=== PATIENT | female | born 1960 | race Caucasian/White ===

== ENCOUNTER → 2019-11-28 | Outpatient (REF) | payer BC ==
[2019-11-28 18:07] LABS: APPEARANCE, URINE CLEAR (CLEAR); BACTERIA, URINE AUTO NEGATIVE (NEGATIVE); BILIRUBIN, URINE AUTO NEGATIVE (NEGATIVE); BLOOD, URINE BLOOD NEGATIVE (NEGATIVE); COLOR, URINE YELLOW (YELLOW); GLUCOSE, URINE (UA) AUTO NEGATIVE (NEGATIVE); KETONE, URINE AUTO NEGATIVE (NEGATIVE); LEUKOCYTE ESTERASE, URINE AUTO NEGATIVE (NEGATIVE); NITRITE, URINE AUTO NEGATIVE (NEGATIVE); PROTEIN, URINE AUTO NEGATIVE (NEGATIVE); RBC, URINE AUTO 0 /HPF (0-3); SQUAMOUS EPITHELIAL CELL UR AU 0 /HPF (0-6); UROBILINOGEN, URINE AUTO 0.2 mg/dL (0.0-2.0); WBC, URINE AUTO 0 /HPF (0-3)
== END ==
LOC: M SFHCWAGY 16:42
PROVIDERS: ATTEND Obstetrics & Gynecology
DX: R31.9 Hematuria, unspecified (principal); Z12.4 Encounter for screening for malignant neoplasm of cervix
CPT/HCPCS: 81001; 87624; G0123

== ENCOUNTER → 2019-12-12 | Outpatient (CLI) | payer BC, OTHER ==
[~2019-12-12] MED LIST: COLA100C5 PO; ESTR1TAB PO; IBUP80TA PO; OXYC1TAB23 PO; ZOFR4TAB16 PO
--- NOTE | 2019-12-12 11:55 | REP ---
POSTMENOPAUSAL BLEEDING: COMPARISON: 01/19/2007 which was essentially within normal limits. Transvesical and transvaginal imaging was obtained. The uterus measures 7. 1 x 3.2 x 4.3 cm. Due to the position of the uterus, which is unchanged from the prior exam, the endometrium is difficult to evaluate but has a maximal thickness of approximately 9 mm. In the frontal portion of the uterus, there is an echogenic structure and this extends into the endometrium which measures approximately 1.7 x 1.3 cm, the etiology of which is uncertain. Doppler of this area shows no color flow signal. Left ovary is surgically absent. Right ovary measures 1.6 x 0.9 x 1.4 cm and is within normal limits. IMPRESSION: Markedly limited exam with findings as described above, the etiology of which is uncertain. Pre- and post gadolinium enhanced pelvic MRI is recommended.
== END ==
LOC: M WHC 08:54
PROVIDERS: ATTEND Obstetrics & Gynecology
DX: N95.0 Postmenopausal bleeding (principal)

== ENCOUNTER → 2019-12-19 | Outpatient (CLI) | payer BC ==
--- NOTE | 2019-12-19 08:35 | REPMRS ---
Patient History The patient states she had a clinical breast exam in November 2019. Patient is postmenopausal. Family history of neck cancer at age 80 in mother, skin cancer at age 80 in father, rectal cancer at age 87 in maternal grandmother. Digital Woman Screen Mammo: December 19, 2019 - Exam #: [id number] Bilateral CC and MLO view(s) were taken. Technologist: Emeli Pablo, Technologist Prior study comparison: April 09, 2016, bilateral digital woman screen mammo, performed at [facility]. FINDINGS: There are scattered fibroglandular densities. The Volpara volumetric breast density category is:B. There has been no change in the appearance of the mammogram from the prior studies. There is a mild amount of scattered fibroglandular density which is fairly symmetric. There is no interval development of dominant mass, architectural distortion, or grouped microcalcification suggestive of malignancy. 3-D tomosynthesis shows no additional findings. Assessment: BI-RADS/ACR category 1 mammogram. Negative Mammogram. Recommendation Routine screening mammogram of both breasts in 1 year (for women over age 40). This patient's Lifetime Breast Cancer Risk is estimated at 7.5 %. This mammogram was interpreted with the aid of an FDA-approved computer-aided dectection system. Electronically Signed By: John Gonzalez MD 12/19/19 0829
== END ==
LOC: M WHC 07:13
PROVIDERS: ATTEND Obstetrics & Gynecology
DX: Z12.31 Encounter for screening mammogram for malignant neoplasm of breast (principal); Z78.0 Asymptomatic menopausal state; Z80.8 Family history of malignant neoplasm of other organs or systems

== ENCOUNTER → 2020-01-11 | Outpatient (CLI) | payer BC ==
--- NOTE | 2020-02-16 13:45 | ECGEPIP ---
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
== END ==
LOC: M EKG 09:08
PROVIDERS: ATTEND Anesthesiology
DX: Z01.818 Encounter for other preprocedural examination (principal)

== ENCOUNTER 2020-01-12 14:00 | Day surgery (SDC) | payer BC ==
[2020-01-12] MEDS ORDERED: propofoL 200 MG/20 ML VIAL ONE (19:56)
[2020-01-12] MEDS ORDERED: dexameTHASONE 4 MG/ML 1ML VIAL (J1100 PER 1MG) ONE ×2 (19:57)
[2020-01-12] MEDS ORDERED: MIDAZOLAM INJ 2MG/2ML VIAL (J2250 PER 1MG) ONE (19:57)
[2020-01-12] MEDS ORDERED: ONDANSETRON 4MG/2ML VIAL ONE (19:57)
[2020-01-12] MEDS ORDERED: LIDOCAINE 2% 100MG/5ML SDV (FOR ANES.) ONE (19:57)
[2020-01-12] MEDS ORDERED: fentaNYL 100 MCG/2 ML INJECTION (J3010) ONE (19:57)
[2020-01-12] MEDS ORDERED: KETOROLAC 60MG 2ML VIAL ONE (20:06)
[2020-01-12] MEDS ORDERED: ACETAMINOPHEN 1000MG 100ML IV BTL (OFIRMEV) (J0131 PER 10MG) ONE (21:16)
[2020-02-19] MEDS ORDERED: ESTR1TAB PO (11:48)
--- NOTE | 2020-03-07 13:45 | RO ---
DATE OF OPERATION: 01/12/2020 PREOPERATIVE DIAGNOSES: * Postmenopausal bleeding * Endometrial mass. POSTOPERATIVE DIAGNOSES: * Postmenopausal bleeding. * Endometrial mass. PROCEDURES PERFORMED: * Hysteroscopy and dilation and curettage (D&C). * MyoSure morcellation of endometrial mass. SURGEON: Beny Malik DO BOARD CATCHER: None. ANESTHESIA: General via laryngeal mask airway (LMA). SPECIMENS SENT TO PATHOLOGY: * Endometrial mass, morcellated. * Endometrial curettings. ESTIMATED BLOOD LOSS: 10 mL. FLUIDS REPLACED: 800 mL of lactated ringers. FLUID DEFICIT: 500 mL normal saline (hysteroscopic fluid deficit). DRAINS: In and out catheter 250 mL urine output. COMPLICATIONS: None. PREOPERATIVE ANTIBIOTICS: None indicated. INTRAOPERATIVE FINDINGS: Endometrial mass approximately 1-2 cm in greatest dimension located on the right fundal portion of the endometrial cavity. DESCRIPTION OF PROCEDURE: The patient was counseled and consented on the risks, benefits, indications, and alternatives of the procedure. Informed consent was obtained. She was taken to the operating room with an IV running and placed on the operating room table in the dorsal supine position. General anesthesia was administered and the airway secured without any difficulty. She was then placed in the high lithotomy position. She was prepared and draped in the normal sterile fashion. Time-out was performed per protocol. The bladder was drained with a sterile in and out catheter. A sterile speculum was placed with good visualization of the cervix. The anterior lip of the cervix was grasped with a single-tooth tenaculum and downward traction was applied. The cervix was then sequentially dilated to a Paramjit dilator #20, and the uterus was sounded to 8 cm. The hysteroscope was placed transcervically into the intrauterine cavity with the findings noted above. Given the endometrial mass the MyoSure light was then placed transcervically into the intrauterine cavity through the hysteroscope port and the endometrial mass was morcellated until all of it was gone. The MyoSure device was removed, a sharp curette was placed transcervically into the intrauterine cavity, and a sharp curettage was performed throughout the cavity until gritty texture was noted throughout and minimal tissue was noted. The sharp curette was removed. Minimal bleeding from the cervical os was noted. Single-tooth tenaculum was removed and the tenaculum sites were noted to be hemostatic. Sponge, needle, and instrument counts were correct per protocol. The patient tolerated the entire procedure well. All instruments were removed from the vagina. She was transferred to the PACU in good stable condition. PASCUAL
[2020-03-09 19:09] LABS: HEMATOCRIT 44.2 % (36.0-47.0); HEMOGLOBIN 14.4 g/dl (12.0-15.5); MEAN CORPUSCULAR HEMOGLOBIN 32.9 pg (27.0-33.0); MEAN CORPUSCULAR HGB CONC 32.6 g/dl (32.0-36.5); MEAN CORPUSCULAR VOLUME 100.9 fl (80.0-96.0); PLATELET COUNT, AUTOMATED 281 10^3/uL (150-450); RED BLOOD COUNT 4.38 10^6/uL (4.00-5.40); WHITE BLOOD COUNT 11.4 10^3/uL (4.0-10.0)
== END 2020-01-12 22:55 | disposition home or self-care (01) ==
LOC: M SDC 14:00
PROVIDERS: ATTEND Obstetrics & Gynecology
DX: N85.02 Endometrial intraepithelial neoplasia [EIN] (principal); N95.0 Postmenopausal bleeding; M06.9 Rheumatoid arthritis, unspecified; F32.9 Major depressive disorder, single episode, unspecified; F17.210 Nicotine dependence, cigarettes, uncomplicated; Z88.1 Allergy status to other antibiotic agents; Z91.040 Latex allergy status; Z91.018 Allergy to other foods; Z88.2 Allergy status to sulfonamides; Z79.818 Long term (current) use of other agents affecting estrogen receptors and estrogen levels
CPT/HCPCS: 58558; 85027; 86850; 86900; 86901; 88305; J0131; J1100; J1885; J2250; J2405; J3010

== ENCOUNTER → 2020-02-16 | Outpatient (CLI) | payer BC, OTHER ==
[2020-02-16 15:20] LABS: BASO # 0.1 10^3/uL (0.0-0.2); BASO % 0.8 % (0.0-1.0); EOS # 0.2 10^3/uL (0.0-0.5); EOS % 1.8 % (0.0-3.0); HEMATOCRIT 43.4 % (36.0-47.0); HEMOGLOBIN 14.4 g/dl (12.0-15.5); LYMPH # 3.3 10^3/uL (1.5-5.0); LYMPH % 27.8 % (24.0-44.0); MEAN CORPUSCULAR HEMOGLOBIN 33.4 pg (27.0-33.0); MEAN CORPUSCULAR HGB CONC 33.2 g/dl (32.0-36.5); MEAN CORPUSCULAR VOLUME 100.7 fl (80.0-96.0); MONO % 8.4 % (0.0-5.0); NEUTROPHILS # 7.2 10^3/uL (1.5-8.5); NEUTROPHILS % 60.9 % (36.0-66.0); PLATELET COUNT, AUTOMATED 279 10^3/uL (150-450); RED BLOOD COUNT 4.31 10^6/uL (4.00-5.40); WHITE BLOOD COUNT 11.9 10^3/uL (4.0-10.0)
[2020-02-16 15:58] LABS: ALBUMIN 3.9 GM/DL (3.2-5.2); ALT/SGPT 46 U/L (12-78); BILIRUBIN,TOTAL 0.4 MG/DL (0.2-1.0); BLOOD UREA NITROGEN 13 MG/DL (7-18); CALCIUM LEVEL 9.2 MG/DL (8.8-10.2); CARBON DIOXIDE LEVEL 28 MEQ/L (21-32); CHLORIDE LEVEL 103 MEQ/L (98-107); CHOLESTEROL LEVEL 233 MG/DL (<200); CREATININE FOR GFR 0.84 MG/DL (0.55-1.30); FREE T4 0.94 NG/DL (0.76-1.46); GLOMERULAR FILTRATION RATE > 60.0 (>45); GLUCOSE, FASTING 103 MG/DL (70-100); HDL CHOLESTEROL 56 MG/DL (>40); LDL CHOLESTEROL 151 MG/DL (<100); NON-HDL-C 177 MG/DL; POTASSIUM SERUM 4.2 MEQ/L (3.5-5.1); SODIUM LEVEL 139 MEQ/L (136-145); TOTAL PROTEIN 7.6 GM/DL (6.4-8.2); TRIGLYCERIDES LEVEL 129 MG/DL (<150)
== END ==
LOC: M PLALAB 14:03
PROVIDERS: ATTEND Physician Assistant
DX: Z00.00 Encounter for general adult medical examination without abnormal findings (principal); Z13.29 Encounter for screening for other suspected endocrine disorder; Z13.220 Encounter for screening for lipoid disorders; F17.210 Nicotine dependence, cigarettes, uncomplicated

== ENCOUNTER → 2020-02-21 | Outpatient (CLI) | payer BC | LOC: M LABSMTC 10:57 | PROVIDERS: ATTEND Anesthesiology | DX: Z01.812 Encounter for preprocedural laboratory examination (principal); Z20.828 Contact with and (suspected) exposure to other viral communicable diseases | CPT/HCPCS: C9803; U0003 ==

== ENCOUNTER 2020-02-26 06:05 | Day surgery (SDC) | payer BC ==
[~2020-02-26] VITALS: Ht 157.5 cm; Wt 95.7 kg
[~2020-02-26 06:05] MED LIST changes: -COLA100C5 PO; -IBUP80TA PO; -OXYC1TAB23 PO; -ZOFR4TAB16 PO
[2020-02-26 06:44] LABS: HEMATOCRIT 42.6 % (36.0-47.0); MEAN CORPUSCULAR HEMOGLOBIN 33.3 pg (27.0-33.0); MEAN CORPUSCULAR HGB CONC 32.9 g/dl (32.0-36.5); MEAN CORPUSCULAR VOLUME 101.2 fl (80.0-96.0); PLATELET COUNT, AUTOMATED 276 10^3/uL (150-450); RED BLOOD COUNT 4.21 10^6/uL (4.00-5.40); WHITE BLOOD COUNT 8.4 10^3/uL (4.0-10.0)
[2020-02-26] MEDS ORDERED: ceFAZolin SOD 2 GM in IV 1 EA IV ONE (07:00)
[2020-02-26] MEDS ORDERED: LR 1,000 ML IV ONE (07:00)
[2020-02-26] MEDS ORDERED: BUPIVACAINE HCL 0.25% 30ML VIAL As Ordered ONE (07:12)
[2020-02-26] MEDS ORDERED: METHYLENE BLUE 0.5% (5MG/ML) 10 ML AMP (PROVAYBLUE) As Ordered ONE (07:12)
[2020-02-26] MEDS ORDERED: METOCLOPRAMIDE INJ 10MG/2ML VIAL (J2765 PER 1) As Ordered ONE (07:13)
[2020-02-26] MEDS ORDERED: LIDOCAINE 2% 100MG/5ML SDV (FOR ANES.) As Ordered ONE (07:13)
[2020-02-26] MEDS ORDERED: propofoL 200 MG/20 ML VIAL As Ordered ONE (07:13)
[2020-02-26] MEDS ORDERED: ONDANSETRON 4MG/2ML VIAL As Ordered ONE (07:13)
[2020-02-26] MEDS ORDERED: ROCURONIUM BROMIDE 50 MG/5 ML VIAL As Ordered ONE (07:13)
[2020-02-26] MEDS ORDERED: MIDAZOLAM INJ 2MG/2ML VIAL (J2250 PER 1MG) As Ordered ONE (07:14)
[2020-02-26] MEDS ORDERED: fentaNYL 100 MCG/2 ML INJECTION (J3010) As Ordered ONE (07:15)
[2020-02-26] MEDS ORDERED: LABETALOL 100MG/20ML VIAL As Ordered ONE (08:21)
[2020-02-26] MEDS ORDERED: hydrALAZINE 20MG/ML 1ML VIAL (J0360 PER 20MG) As Ordered ONE (08:21)
[2020-02-26] MEDS ORDERED: HYDROmorphone HCL 2 MG/ML 1ML VIAL (J1170) As Ordered ONE (08:24)
[2020-02-26] MEDS ORDERED: SUGAMMADEX SODIUM 500 MG/5 ML VIAL (BRIDION) As Ordered ONE (09:16)
[2020-02-26] MEDS ORDERED: dexameTHASONE 4 MG/ML 1ML VIAL (J1100 PER 1MG) As Ordered ONE (09:20)
[2020-02-26] MEDS ORDERED: KETOROLAC 60MG 2ML VIAL As Ordered ONE (09:20)
[2020-02-26] MEDS ORDERED: LR 1,000 ML IV SCH ×2 (10:15)
[2020-02-26] MEDS ORDERED: fentaNYL 100 MCG/2 ML INJECTION (J3010) IV PRN (10:15)
[2020-02-26] MEDS ORDERED: METOCLOPRAMIDE INJ 10MG/2ML VIAL (J2765 PER 1) IV PRN (10:15)
[2020-02-26] MEDS ORDERED: PROMETHAZINE INJ 25 MG/ML VIAL (J2550) IV PRN (10:15)
[2020-02-26] MEDS ORDERED: PERCOCET 5MG/325MG TAB PO PRN ×3 (10:15)
[2020-02-26] MEDS ORDERED: MORPHINE 4 MG/ML 1ML VIAL/SYRINGE (J2270) IV PRN (10:15)
[2020-02-26] MEDS ORDERED: ONDANSETRON 4MG/2ML VIAL IV PRN ×2 (10:15)
--- NOTE | 2020-02-26 10:20 | ROOPDOC ---
[facility] Report Of Operation Report of Operation DATE OF PROCEDURE: 02/26/2020 PREPROCEDURE DIAGNOSES: Postmenopausal bleeding, complex atypical endometrial hyperplasia POSTPROCEDURE DIAGNOSES: Same. PROCEDURE: Robotic-assisted total laparoscopic hysterectomy, bilateral salpingo- oophorectomy, lysis of adhesions, cystoscopy SURGEON: Beny Malik D.O. FACOG THREADING MACHINE TENDER: Breanna Oliveira (essential role during all steps of the case, particularly with uterine manipulation) ANESTHESIA: General endotracheal. ESTIMATED BLOOD LOSS: Approximately 200 mL. FLUIDS REPLACED: 1000 mL LR URINE OUTPUT: 50 mL COMPLICATIONS: None. FINDINGS: Normal-appearing ovaries bilaterally. Uterus was approximately 8 centimeters in greatest dimension. Very dense bladder adhesions to the cervix and anterior uterine body/lower uterine segment . Cystoscopy: Bilateral ureteral orifice efflux, no bladder injury/suture material. PREOPERATIVE ANTIBIOTIC PROPHYLAXIS: Ancef 2 g IV 1. SPECIMEN(S): Uterus w/ cervix, bilateral fallopian tubes and ovaries DESCRIPTION OF PROCEDURE: The patient was counseled, consented on the respective benefits, indications, alternatives of procedure. Informed consent was obtained. She was taken to the operating room with an IV running. She was placed on the operating table in dorsal supine position. Gen. anesthesia was administered and the airway was secured without any difficulty. She was placed in the low lithotomy position. . She was prepared and draped in the normal sterile fashion. A time out was performed per protocol. A Ahuja catheter was placed under sterile conditions. A sterile speculum was placed resulting in good visualization of the cervix. A single-tooth tenaculum was used to grasp the anterior lip cervix. The cervix was sequentially dilated with Paramjit dilators. A V-Care uterine manipulator was placed without any difficulty. The single-tooth tenaculum was removed, as well as the speculum. A sterile glove switch was performed. Attention was turned to the abdomen. An 8mm incision was made in the umbilicus, and through this incision a Veress needle was inserted into the intraperitoneal cavity. Intraperitoneal placement was confirmed with ease of flow of normal saline, positive drop test, no return on aspiration, and an opening pressure of less than 10 mmHg upon initial insufflation. The abdomen was insufflated with 2 L of gas. The Veress needle was removed. Through this incision, the robotic trocar/cannula was inserted into the intraperitoneal cavity under direct visualization. No incidental bleeding nor injury was noted. Patient was placed in 30 Trendelenburg. The right and left trocars/cannulas were placed on both the right and left side through 8 mm incisions, guided by laparoscopic visualization. No incidental bleeding nor injury was noted. The robot was docked in typical fashion. The instruments were inserted, guided by laparoscopic visualization. My attention was turned to the robotic console. The right utero-ovarian ligament and right round ligament were sequentially clamped, coagulated and transected with the vessel sealer device. The right uterine vasculature was sequentially clamped, coagulated and transected above and medial to the rim of the colpotomy cup. The vesicovaginal space /vesicouterine peritoneum was dissected with the vessel sealer device to create the bladder flap. An extensive amount of adhesiolysis had to be performed during this process to mobilize the bladder off the cervix and uterus. The left utero-ovarian ligament and left round ligament were sequentially clamped, coagulated and transected with the vessel sealer device. The remainder of the bladder flap was dissected using the vessel sealer device and blunt dissection.. Again, an extensive amount of adhesiolysis was performed. The left uterine vasculature was sequentially clamped, coagulated and transected above and medial to the rim of the colpotomy cup. The outline of the entire V- care colpotomy cup was able to be delineated. Excellent blanching of the uterus was noted. A circumferential colpotomy was performed using the da Josiane monopolar erica, following the contour of the cup. The amputated cervix and uterus were brought through the colpotomy into and out of the vagina, intact as one unit. The right IP ligament was identified and elevated. The right ureter was identified and noted to be well away from the planned surgical pedicle. The right IP ligament was sequentially clamped, coagulated and transected with the vessel sealer device. The amputated right ovary and fallopian tube were put into the vagina through the colpotomy. In similar fashion, the left IP ligament was identified and elevated. The left ureter was identified and noted to be well away from the planned surgical pedicle. The left IP ligament was sequentially clamped, coagulated and transected with the vessel sealer device. Amputated left ovary and fallopian tube were put into the vagina through the colpotomy. All specimens were removed from the vagina and sent to pathology for permanent s ection. A laparotomy sponge was placed in a sterile glove and then placed into the vagina to maintain pneumoperitoneum. The colpotomy was closed with the V-lock suture in running fashion, thus creating the vaginal cuff. Excellent hemostasis was noted throughout the steps above. David was placed over the vaginal cuff to ensure hemostasis. The instruments were removed from the abdomen and the robot was un-docked. The gas was released from the abdomen and the patient was taken out of Trendelenburg. I re-scrubbed, and attention was turned to the pelvis. The glove with laparotomy sponge was removed from the vagina. The Ahuja catheter was removed. The cystoscope was placed transurethrally into the bladder and normal saline was instilled. No bladder injury/suture material nor ureteral injury was detected. The fluid was drained out of the bladder through the cystoscope device, then the cystoscope was removed. The vagina was copiously irrigated. A sterile digital vaginal exam revealed no significant bleeding and an intact vaginal cuff. A sterile glove switch was performed. The da Josiane cannulas were removed. The skin incisions were closed with 4-0 Monocryl in subcuticular fashion. Sponge, needle and instrument counts were correct per protocol. The patient tolerated the entire procedure very well. She was transferred to the PACU in good and stable condition. DO STEPHANIE Earl JONATHAN R. DO Feb 26, 2020 10:20
[2020-02-26 10:32] VITALS: BP 115/67
[2020-02-26 11:00] VITALS: BP 110/60
[2020-02-26 11:30] VITALS: BP 107/54
[2020-02-26 12:30] VITALS: BP 110/55
[2020-02-26 13:30] VITALS: BP 109/57
[2020-02-26] MEDS ORDERED: OXYC1TAB23 PO (13:46)
[2020-02-26] MEDS ORDERED: IBUP80TA PO (13:48)
[2020-02-26] MEDS ORDERED: COLA100C5 PO (13:49)
[2020-02-26] MEDS ORDERED: ZOFR4TAB16 PO (13:49)
== END 2020-02-26 15:04 | disposition home or self-care (01) ==
LOC: M SDC 06:05 → M MSPAV 10:32 → M SDC 15:04
PROVIDERS: ATTEND Obstetrics & Gynecology
DX: C54.1 Malignant neoplasm of endometrium (principal); N72 Inflammatory disease of cervix uteri; F17.218 Nicotine dependence, cigarettes, with other nicotine-induced disorders; Z79.899 Other long term (current) drug therapy; Z88.2 Allergy status to sulfonamides; Z91.040 Latex allergy status
CPT/HCPCS: 36415; 58571; 85027; 86850; 86900; 86901; 88307; J0360; J0690; J1100; J1170; J1885; J2250; J2405; J2765; J3010; Q9968

== ENCOUNTER → 2020-03-13 | Outpatient (CLI) | payer BC ==
[~2020-03-13] MED LIST changes: +COLA100C5 PO; +GASTROGRAFIN SOLUTION 30ML (Q9963) As Ordered ONE; +IBUP80TA PO; +ISOVUE-370 76% 100ML VIAL As Ordered ONE; +OXYC1TAB23 PO; +ZOFR4TAB16 PO
--- NOTE | 2020-03-14 06:59 | REP ---
INDICATION: ENDOMETRIAL CA COMPARISON: None. TECHNIQUE: Axial contrast enhanced images from the thoracic inlet to the upper abdomen using 100 ml Isovue 370 intravenous contrast material with multiplanar re-formations followed by CT of the abdomen and pelvis. FINDINGS: The bilateral lung whitney are well aerated and essentially clear. Minimal linear plate like scarring in the left mid lung zone is appreciated. No consolidation, suspicious nodule or mass lesion. No pleural effusion. No pneumothorax. Tracheobronchial tree is patent. No significant adenopathy. Mediastinum demonstrates relatively normal thoracic aorta, pulmonary vasculature, and heart/pericardium. Surrounding musculoskeletal structures are intact and without acute osseous abnormality. IMPRESSION: 1. No acute mediastinal or pleuroparenchymal process appreciated. 2. Specifically, no evidence for metastatic disease. <Electronically signed by Vernon Mars > 03/14/20 [id number]
--- NOTE | 2020-03-14 07:05 | REP ---
INDICATION: ENDOMETRIAL CA COMPARISON: None. TECHNIQUE: Axial contrast enhanced images from the lung bases to the pubic symphysis using 100 cc Isovue 370 intravenous contrast material with coronal and sagittal reformations followed by delayed images of the abdomen. FINDINGS: Fatty infiltration to the liver noted without focal hepatic lesion. Spleen, pancreas, gallbladder, bilateral adrenal glands and kidneys are normal. The enteric system is without obstruction or acute inflammatory process. Scattered sigmoid diverticula noted without acute diverticulitis. Pelvis demonstrates normal bladder and evidence for prior hysterectomy. No pelvic fluid. No obvious focal pelvic recurrence or evidence for metastatic disease. No ascites. No intraperitoneal or retroperitoneal adenopathy. Atherosclerotic changes to the aorta noted without aneurysm or dissection musculoskeletal structures are intact and without acute osseous abnormality IMPRESSION: 1. Evidence of prior total hysterectomy. 2. Hepatosteatosis. 3. No acute abdominopelvic pathology appreciated. Specifically, no evidence for recurrence or metastatic disease. <Electronically signed by Vernon Mars > 03/14/20 0701
== END ==
LOC: M RAD 14:42
PROVIDERS: ATTEND Obstetrics & Gynecology
DX: C54.1 Malignant neoplasm of endometrium (principal); Z90.79 Acquired absence of other genital organ(s); K76.0 Fatty (change of) liver, not elsewhere classified
CPT/HCPCS: 71260; 74177; Q9963; Q9967

== ENCOUNTER → 2020-04-19 | Outpatient (CLI) | payer BC ==
[~2020-04-19] MED LIST changes: -GASTROGRAFIN SOLUTION 30ML (Q9963) As Ordered ONE; -ISOVUE-370 76% 100ML VIAL As Ordered ONE
== END ==
LOC: M LABSMTC 09:46
PROVIDERS: ATTEND Anesthesiology
DX: Z01.812 Encounter for preprocedural laboratory examination (principal); Z20.828 Contact with and (suspected) exposure to other viral communicable diseases

== ENCOUNTER 2020-04-24 07:40 | Day surgery (SDC) | payer BC ==
[~2020-04-24] VITALS: Ht 157.5 cm; Wt 95.2 kg
[~2020-04-24 07:40] MED LIST changes: +NS 1,000 ML IV ONE
[2020-04-24] MEDS ORDERED: propofoL 200 MG/20 ML VIAL As Ordered ONE ×2 (07:41→09:03)
[2020-04-24] MEDS ORDERED: LIDOCAINE 2% 100MG/5ML SDV (FOR ANES.) As Ordered ONE (07:41)
[2020-04-24] MEDS ORDERED: LABETALOL 100MG/20ML VIAL As Ordered ONE (08:57)
--- NOTE | 2020-04-24 09:21 | ROOR ---
Patient Name: Radha Melo Procedure Date: 04/24/2020 8:41 AM Date of : 1960 Age: 59 Room: [facility] Gender: Female Note Status: Finalized Procedure: Colonoscopy Indications: Screening for colorectal malignant neoplasm Providers: DO Ashley Ramirez MD: Shante Coronado Requesting Provider: Medicines: Propofol per Anesthesia Complications: No immediate complications. Procedure: Pre-Anesthesia Assessment: - Prior to the procedure, a History and Physical was performed, and patient medications and allergies were reviewed. The patient is competent. The risks and benefits of the procedure and the sedation options and risks were discussed with the patient. All questions were answered and informed consent was obtained. Patient identification and proposed procedure were verified by the physician, the nurse, the trailer mechanic and the poured concrete wall technician in the endoscopy suite. Mental Status Examination: alert and oriented. Airway Examination: normal oropharyngeal airway and neck mobility. Respiratory Examination: clear to auscultation. CV Examination: normal. Prophylactic Antibiotics: The patient does not require prophylactic antibiotics. Prior Anticoagulants: The patient has taken no previous anticoagulant or antiplatelet agents. ASA Grade Assessment: II - A patient with mild systemic disease. After reviewing the risks and benefits, the patient was deemed in satisfactory condition to undergo the procedure. The anesthesia plan was to use monitored anesthesia care (MAC). Immediately prior to administration of medications, the patient was re-assessed for adequacy to receive sedatives. The heart rate, respiratory rate, oxygen saturations, blood pressure, adequacy of pulmonary ventilation, and response to care were monitored throughout the procedure. The physical status of the patient was re-assessed after the procedure. The Colonoscope was introduced through the anus and advanced to the cecum, identified by appendiceal orifice and ileocecal valve. The colonoscopy was performed without difficulty. The patient tolerated the procedure well. Findings: Non-bleeding internal hemorrhoids were found during retroflexion. The hemorrhoids were Grade II (internal hemorrhoids that prolapse but reduce spontaneously). A less than 5 mm polyp was found in the sigmoid colon. The polyp was hyperplastic. The polyp was removed with a jumbo cold forceps. Resection and retrieval were complete. The exam was otherwise without abnormality. Impression: - Non-bleeding internal hemorrhoids. - One less than 5 mm polyp in the sigmoid colon, removed with a jumbo cold forceps. Resected and retrieved. - The examination was otherwise normal. Recommendation: - Patient has a contact number available for emergencies. The signs and symptoms of potential delayed complications were discussed with the patient. Return to normal activities tomorrow. Written discharge instructions were provided to the patient. - Await pathology results. - Repeat colonoscopy in 3 - 5 years for surveillance based on pathology results. - Return to my office at appointment to be scheduled. Procedure Code(s): --- Professional --- 49173, Colonoscopy, flexible; with biopsy, single or multiple Diagnosis Code(s): --- Professional --- Z12.11, Encounter for screening for malignant neoplasm of colon K64.1, Second degree hemorrhoids K63.5, Polyp of colon CPT copyright 2019 [employer]. All rights reserved. The codes documented in this report are preliminary and upon first officer review may be revised to meet current compliance requirements. Mo Ayala DO 04/24/2020 9:21:02 AM Electronically signed by Mo Ayala DO Number of Addenda: 0 Note Initiated On: 04/24/2020 8:41 AM Estimated Blood Loss: Estimated blood loss was minimal.
[2020-04-24 09:50] VITALS: BP 172/84
== END 2020-04-24 10:08 | disposition home or self-care (01) ==
LOC: M OPP 07:40
PROVIDERS: ATTEND Surgery
DX: Z12.11 Encounter for screening for malignant neoplasm of colon (principal); K63.5 Polyp of colon; K64.1 Second degree hemorrhoids; F17.210 Nicotine dependence, cigarettes, uncomplicated; Z88.2 Allergy status to sulfonamides; Z88.8 Allergy status to other drugs, medicaments and biological substances; Z91.040 Latex allergy status; Z91.048 Other nonmedicinal substance allergy status

== ENCOUNTER → 2020-09-20 | Outpatient (REF) | payer BC ==
[~2020-09-20] MED LIST changes: -NS 1,000 ML IV ONE
[2020-09-20 14:37] LABS: CHOLESTEROL RISK RATIO 4.109 (<5)
== END ==
LOC: M SFHCPLAZ 13:28
PROVIDERS: ATTEND Physician Assistant
DX: E78.2 Mixed hyperlipidemia (principal)

== ENCOUNTER → 2021-01-21 | Outpatient (CLI) | payer BC ==
--- NOTE | 2021-01-21 12:08 | REPMRS ---
Patient History The patient states she had a clinical breast exam in 12/2020. Patient is postmenopausal and has history of endometrial cancer at age 59. Family history of colorectal cancer at age 87 in maternal grandmother. No Hormone Replacement Therapy Patient states no breast complaints today. Patient has signed MRS History Sheet. Digital Woman Screen Mammo: January 21, 2021 - Exam #: [id number] Bilateral CC and MLO view(s) were taken. Technologist: Mariama Vigil, Technologist Prior study comparison: December 19, 2019, bilateral digital woman screen mammo performed at [facility]. April 09, 2016, bilateral digital woman screen mammo, performed at [facility]. FINDINGS: There are scattered fibroglandular densities. The Volpara volumetric breast density category is:B. There has been no change in the appearance of the mammogram from the prior studies. There is a mild amount of scattered fibroglandular density which is fairly symmetric. There is no interval development of dominant mass, architectural distortion, or grouped microcalcification suggestive of malignancy. 3-D tomosynthesis shows no additional findings. Assessment: BI-RADS/ACR category 1 mammogram. Negative Mammogram. Recommendation Routine screening mammogram of both breasts in 1 year (for women over age 40). This patient's [facility] Lifetime Breast Cancer Risk is estimated at 7.3 %. This mammogram was interpreted with the aid of an FDA-approved computer-aided dectection system. Electronically Signed By: John Gonzalez MD 01/21/21 7641
== END ==
LOC: M WHC 08:45
PROVIDERS: ATTEND Obstetrics & Gynecology
DX: Z12.31 Encounter for screening mammogram for malignant neoplasm of breast (principal); Z78.0 Asymptomatic menopausal state; Z85.42 Personal history of malignant neoplasm of other parts of uterus

== ENCOUNTER → 2021-01-21 | Outpatient (CLI) | payer BC ==
--- NOTE | 2021-01-21 11:14 | REP ---
INDICATION: OTHER CHEST PAIN COMPARISON: 05/18/2015 TECHNIQUE: PA and lateral. FINDINGS: The mediastinum and cardiac silhouette are normal. The lung whitney are clear and without acute consolidation, effusion, or pneumothorax. The skeletal structures are intact and normal. IMPRESSION: No acute cardiopulmonary process. <Electronically signed by Vernon Mars > 01/21/21 [id number]
== END ==
LOC: M PLAIMG 10:06 → M PLALAB 10:06
PROVIDERS: ATTEND Obstetrics & Gynecology
DX: Z12.72 Encounter for screening for malignant neoplasm of vagina (principal); Z01.419 Encounter for gynecological examination (general) (routine) without abnormal findings; R07.89 Other chest pain
CPT/HCPCS: 71046; 87624; G0123

== ENCOUNTER → 2022-03-27 | Outpatient (CLI) | payer BC | LOC: M WHC 11:12 | PROVIDERS: ATTEND Obstetrics & Gynecology | DX: Z12.31 Encounter for screening mammogram for malignant neoplasm of breast (principal) ==

== ENCOUNTER → 2022-03-27 | Outpatient (CLI) | payer BC | LOC: M WHC 12:41 | PROVIDERS: ATTEND Obstetrics & Gynecology | DX: Z85.42 Personal history of malignant neoplasm of other parts of uterus (principal) ==

== ENCOUNTER → 2022-03-27 | Outpatient (REF) | payer BC | LOC: M SFHCWAGY 17:10 | PROVIDERS: ATTEND Obstetrics & Gynecology | DX: Z85.42 Personal history of malignant neoplasm of other parts of uterus (principal); Z12.4 Encounter for screening for malignant neoplasm of cervix; Z01.419 Encounter for gynecological examination (general) (routine) without abnormal findings; Z77.9 Other contact with and (suspected) exposures hazardous to health | CPT/HCPCS: 87624; G0123 ==

== ENCOUNTER → 2022-06-18 | Outpatient (CLI) | payer BC ==
[2022-06-18 11:55] LABS: ALBUMIN 3.9 G/DL (3.2-5.2); ALKALINE PHOSPHATASE 105 U/L (46-116); ALT/SGPT 23 U/L (7.0-40); AST/SGOT 24 U/L (<34); BILIRUBIN,TOTAL 0.4 MG/DL (0.3-1.2); BLOOD UREA NITROGEN 12 MG/DL (9-23); CALCIUM LEVEL 9.1 MG/DL (8.3-10.6); CARBON DIOXIDE LEVEL 29 MMOL/L (20-31); CHLORIDE LEVEL 105 MMOL/L (98-107); CHOLESTEROL LEVEL 218 MG/DL (<200); CHOLESTEROL RISK RATIO 3.85 (<5); CREATININE FOR GFR 0.73 MG/DL (0.55-1.30); GLOMERULAR FILTRATION RATE > 60.0 (>45); GLUCOSE, FASTING 111 MG/DL (74-106); HDL CHOLESTEROL 56.5 MG/DL (>40); LDL CHOLESTEROL 134.9 MG/DL (<100); NON-HDL-C 162 MG/DL; POTASSIUM SERUM 4.2 MMOL/L (3.5-5.1); SODIUM LEVEL 139 MMOL/L (136-145); TOTAL PROTEIN 7.6 G/DL (5.7-8.2); TRIGLYCERIDES LEVEL 133 MG/DL (<150)
== END ==
LOC: M PLALAB 09:04
PROVIDERS: ATTEND Nurse Practitioner Family
DX: E78.2 Mixed hyperlipidemia (principal)

== ENCOUNTER → 2022-08-28 | Outpatient (REF) | payer BC ==
[2022-08-28 17:01] LABS: BASO # 0.1 10^3/uL (0.0-0.2); BASO % 0.9 % (0.0-1.0); EOS # 0.2 10^3/uL (0.0-0.5); EOS % 1.9 % (0.0-3.0); HEMATOCRIT 39.2 % (36.0-47.0); LYMPH # 3.4 10^3/uL (1.5-5.0); MEAN CORPUSCULAR HEMOGLOBIN 33.4 pg (27.0-33.0); MEAN CORPUSCULAR HGB CONC 33.2 g/dl (32.0-36.5); MEAN CORPUSCULAR VOLUME 100.8 fl (80.0-96.0); MONO # 0.9 10^3/uL (0.0-0.8); MONO % 8.7 % (2.0-8.0); NEUTROPHILS % 56.3 % (36.0-66.0); PLATELET COUNT, AUTOMATED 263 10^3/uL (150-450); RED BLOOD COUNT 3.89 10^6/uL (4.00-5.40); WHITE BLOOD COUNT 10.6 10^3/uL (4.0-10.0)
[2022-08-28 17:18] LABS: THYROID STIMULATING HORMONE 1.986 uIU/ML (0.55-4.78)
[2022-08-28 17:19] LABS: FREE T4 0.9 NG/DL (0.89-1.76)
== END ==
LOC: M SFHCADAM 11:42
PROVIDERS: ATTEND Physician Assistant
DX: E66.9 Obesity, unspecified (principal); Z68.38 Body mass index [BMI] 38.0-38.9, adult

== ENCOUNTER → 2022-10-05 | Outpatient (CLI) | payer BC | LOC: M RAD 07:25 | PROVIDERS: ATTEND Physician Assistant | DX: Z87.891 Personal history of nicotine dependence (principal) ==

== ENCOUNTER → 2022-11-03 | Outpatient (REF) | payer BC | LOC: M SFHCWAGY 10:27 | PROVIDERS: ATTEND Obstetrics & Gynecology | DX: Z12.4 Encounter for screening for malignant neoplasm of cervix (principal) | CPT/HCPCS: 87624; G0123 ==

== ENCOUNTER → 2022-11-24 | Outpatient (CLI) | payer BC | LOC: M RAD 07:46 | PROVIDERS: ATTEND Surgery Vascular Surgery | DX: I83.812 Varicose veins of left lower extremity with pain (principal) ==

== ENCOUNTER → 2023-01-26 | Outpatient (CLI) | payer BC ==
[~2023-01-26] MED LIST changes: +ATOR1TAB19 PO; +LIDOCAINE 1% MDV 20ML VIAL As Ordered ONE; +LIDOCAINE W/EPINEPHRINE 1% 20ML VIAL As Ordered ONE; +MIDAZOLAM INJ 2MG/2ML VIAL As Ordered ONE; +MULT-90 PO; +SODIUM BICARBONATE 8.4% INJ 50MEQ 50ML VIAL As Ordered ONE; +VITA-183 PO; +fentaNYL 100 MCG/2 ML INJECTION As Ordered ONE
[2023-01-26 09:35] VITALS: TEMP 97.2
[2023-01-26 09:56] LABS: HEMATOCRIT 39.5 % (36.0-47.0); HEMOGLOBIN 13.1 g/dl (12.0-15.5); MEAN CORPUSCULAR HEMOGLOBIN 31.8 pg (27.0-33.0); MEAN CORPUSCULAR HGB CONC 33.2 g/dl (32.0-36.5); MEAN CORPUSCULAR VOLUME 95.9 fl (80.0-96.0); PLATELET COUNT, AUTOMATED 268 10^3/uL (150-450); RED BLOOD COUNT 4.12 10^6/uL (4.00-5.40); WHITE BLOOD COUNT 7.5 10^3/uL (4.0-10.0)
[2023-01-26 13:00] VITALS: BP 142/96; O2SAT 99
== END ==
LOC: M IRPRO 09:15
PROVIDERS: ATTEND Surgery Vascular Surgery
DX: I83.892 Varicose veins of left lower extremity with other complications (principal); I87.2 Venous insufficiency (chronic) (peripheral)
CPT/HCPCS: 36475; 85027; 99152; 99153; J2250; J3010

== ENCOUNTER → 2023-01-28 | Outpatient (CLI) | payer BC ==
[~2023-01-28] MED LIST changes: -LIDOCAINE 1% MDV 20ML VIAL As Ordered ONE; -LIDOCAINE W/EPINEPHRINE 1% 20ML VIAL As Ordered ONE; -MIDAZOLAM INJ 2MG/2ML VIAL As Ordered ONE; -SODIUM BICARBONATE 8.4% INJ 50MEQ 50ML VIAL As Ordered ONE; -fentaNYL 100 MCG/2 ML INJECTION As Ordered ONE
== END ==
LOC: M RAD 10:33
PROVIDERS: ATTEND Surgery Vascular Surgery
DX: I83.812 Varicose veins of left lower extremity with pain (principal); I87.2 Venous insufficiency (chronic) (peripheral)

== ENCOUNTER → 2023-04-27 | Outpatient (REF) | payer BC | LOC: M SFHCWAGY 10:19 | PROVIDERS: ATTEND Obstetrics & Gynecology | DX: Z12.72 Encounter for screening for malignant neoplasm of vagina (principal) | CPT/HCPCS: 87624; G0123 ==

== ENCOUNTER → 2023-04-27 | Outpatient (CLI) | payer BC | LOC: M WHC 07:42 | PROVIDERS: ATTEND Obstetrics & Gynecology | DX: Z12.31 Encounter for screening mammogram for malignant neoplasm of breast (principal) ==

== ENCOUNTER → 2024-01-03 | Outpatient (CLI) | payer BC | LOC: M RAD 06:24 | PROVIDERS: ATTEND Physician Assistant | DX: Z12.2 Encounter for screening for malignant neoplasm of respiratory organs (principal); F17.211 Nicotine dependence, cigarettes, in remission ==

== ENCOUNTER 2024-03-31 06:59 | Day surgery (SDC) | payer BC ==
[~2024-03-31] VITALS: Ht 157.5 cm; Wt 85.1 kg
[~2024-03-31 06:59] MED LIST changes: +NS 250 ML IV ONE
[2024-03-31] MEDS ORDERED: propofoL 200 MG/20 ML VIAL As Ordered ONE (07:32)
[2024-03-31] MEDS ORDERED: LIDOCAINE 2% 100MG/5ML SDV (FOR ANES.) As Ordered ONE (07:32)
[2024-03-31 07:56] VITALS: TEMP 96.9
[2024-03-31 08:20] VITALS: BP 179/98; O2SAT 97
== END 2024-03-31 08:28 | disposition home or self-care (01) ==
LOC: M OPP 06:59
PROVIDERS: ATTEND Surgery
DX: Z12.11 Encounter for screening for malignant neoplasm of colon (principal); Z12.12 Encounter for screening for malignant neoplasm of rectum; K64.1 Second degree hemorrhoids; Z85.42 Personal history of malignant neoplasm of other parts of uterus; Z90.49 Acquired absence of other specified parts of digestive tract; Z90.710 Acquired absence of both cervix and uterus; Z79.899 Other long term (current) drug therapy; Z91.048 Other nonmedicinal substance allergy status; Z88.2 Allergy status to sulfonamides; Z91.040 Latex allergy status

== ENCOUNTER → 2024-07-12 | Outpatient (CLI) | payer BC, MEDICARE ==
[~2024-07-12] MED LIST changes: -NS 250 ML IV ONE
[2024-07-12 12:55] LABS: BASO # 0.1 10^3/uL (0.0-0.2); BASO % 0.9 % (0.0-1.0); EOS # 0.2 10^3/uL (0.0-0.5); EOS % 3.3 % (0.0-3.0); HEMATOCRIT 39.9 % (36.0-47.0); HEMOGLOBIN 13.2 g/dl (12.0-15.5); LYMPH # 2.3 10^3/uL (1.5-5.0); LYMPH % 32.6 % (24.0-44.0); MEAN CORPUSCULAR HEMOGLOBIN 31.7 pg (27.0-33.0); MEAN CORPUSCULAR HGB CONC 33.1 g/dl (32.0-36.5); MEAN CORPUSCULAR VOLUME 95.9 fl (80.0-96.0); MONO # 0.6 10^3/uL (0.0-0.8); NEUTROPHILS # 3.7 10^3/uL (1.5-8.5); NEUTROPHILS % 53.8 % (36.0-66.0); PLATELET COUNT, AUTOMATED 279 10^3/uL (150-450); RED BLOOD COUNT 4.16 10^6/uL (4.00-5.40); WHITE BLOOD COUNT 6.9 10^3/uL (4.0-10.0)
[2024-07-12 13:34] LABS: ALKALINE PHOSPHATASE 96 U/L (35-104); ALT/SGPT 23 U/L (7.0-40); AST/SGOT 23 U/L (<34); BILIRUBIN,TOTAL 0.5 MG/DL (0.3-1.2); BLOOD UREA NITROGEN 12 MG/DL (9-23); CALCIUM LEVEL 9.4 MG/DL (8.3-10.6); CARBON DIOXIDE LEVEL 29 MMOL/L (20-31); CHLORIDE LEVEL 102 MMOL/L (98-107); CHOLESTEROL LEVEL 166 MG/DL (<200); CHOLESTEROL RISK RATIO 2.35 (<5); GLOMERULAR FILTRATION RATE > 60.0 (>45); GLUCOSE, FASTING 89 MG/DL (74-106); HDL CHOLESTEROL 70.5 MG/DL (>40); LDL CHOLESTEROL 81.1 MG/DL (<100); NON-HDL-C 95.5 MG/DL; POTASSIUM SERUM 4.4 MMOL/L (3.5-5.1); SODIUM LEVEL 142 MMOL/L (136-145); TOTAL PROTEIN 7.4 G/DL (5.7-8.2); TRIGLYCERIDES LEVEL 72 MG/DL (<150)
[2024-07-12 13:35] LABS: THYROID STIMULATING HORMONE 1.305 uIU/ML (0.55-4.78)
[2024-07-12 13:36] LABS: FREE T4 1.06 NG/DL (0.89-1.76); TOTAL 25(OH) VITAMIN D 59.6 NG/ML (20.0-100.0)
[2024-07-12 13:43] LABS: HEMOGLOBIN A1c 5.6 % (4.0-6.0)
== END ==
LOC: M PLALAB 08:48
PROVIDERS: ATTEND Physician Assistant
DX: E78.2 Mixed hyperlipidemia (principal)

== ENCOUNTER → 2024-08-21 | Outpatient (CLI) | payer MEDICARE, BC | LOC: M PLALAB 08:33 | PROVIDERS: ATTEND Obstetrics & Gynecology | DX: Z85.42 Personal history of malignant neoplasm of other parts of uterus (principal) ==

== ENCOUNTER → 2024-08-21 | Outpatient (CLI) | payer BC, MEDICARE | LOC: M WHC 07:16 | PROVIDERS: ATTEND Obstetrics & Gynecology | DX: Z12.31 Encounter for screening mammogram for malignant neoplasm of breast (principal); R92.323 Mammographic fibroglandular density, bilateral breasts ==

== ENCOUNTER → 2024-08-21 | Outpatient (CLI) | payer MEDICARE, BC ==
[2024-08-21 10:02] LABS: BASO # 0.1 10^3/uL (0.0-0.2); BASO % 0.8 % (0.0-1.0); EOS # 0.1 10^3/uL (0.0-0.5); EOS % 1.8 % (0.0-3.0); HEMATOCRIT 39.3 % (36.0-47.0); LYMPH # 1.9 10^3/uL (1.5-5.0); LYMPH % 29.4 % (24.0-44.0); MEAN CORPUSCULAR HEMOGLOBIN 31.9 pg (27.0-33.0); MEAN CORPUSCULAR HGB CONC 33.1 g/dl (32.0-36.5); MEAN CORPUSCULAR VOLUME 96.6 fl (80.0-96.0); MONO # 0.5 10^3/uL (0.0-0.8); MONO % 7.7 % (2.0-8.0); NEUTROPHILS # 3.9 10^3/uL (1.5-8.5); NEUTROPHILS % 59.8 % (36.0-66.0); PLATELET COUNT, AUTOMATED 264 10^3/uL (150-450); RED BLOOD COUNT 4.07 10^6/uL (4.00-5.40); WHITE BLOOD COUNT 6.5 10^3/uL (4.0-10.0)
[2024-08-21 10:05] LABS: ALKALINE PHOSPHATASE 89 U/L (35-104); ALT/SGPT 20 U/L (7.0-40); AST/SGOT 20 U/L (<34); BILIRUBIN,TOTAL 0.5 MG/DL (0.3-1.2); BLOOD UREA NITROGEN 12 MG/DL (9-23); CALCIUM LEVEL 10.1 MG/DL (8.3-10.6); CARBON DIOXIDE LEVEL 29 MMOL/L (20-31); CHLORIDE LEVEL 105 MMOL/L (98-107); CREATININE FOR GFR 0.73 MG/DL (0.55-1.30); GLOMERULAR FILTRATION RATE > 60.0 (>45); GLUCOSE, FASTING 113 MG/DL (74-106); POTASSIUM SERUM 4.3 MMOL/L (3.5-5.1); SODIUM LEVEL 143 MMOL/L (136-145); TOTAL PROTEIN 7.6 G/DL (5.7-8.2)
[2024-08-21 10:07] LABS: FOLATE 22.8 NG/ML (>5.4)
[2024-08-21 10:08] LABS: VITAMIN B12 LEVEL 333 PG/ML (211-911)
[2024-08-21 10:10] LABS: RHEUMATOID FACTOR QUANT < 3.5 IU/ML (<14)
[2024-08-21 10:12] LABS: ERYTHROCYTE SEDIMENTATION RATE 28 mm/hr (0-30)
[2024-08-22 07:28] LABS: T P ELECTROPHORESIS SO 7.6 g/dL (6.1-8.1)
[2024-08-23 07:22] LABS: ALBUMIN SPEP 4.6 g/dL (3.8-4.8); ALPHA-1-GLOBULINS SO 0.3 g/dL (0.2-0.3); ALPHA-2-GLOBULINS SO 0.9 g/dL (0.5-0.9); BETA 2 GLOBULIN 0.4 g/dL (0.2-0.5); BETA-GLOBULIN SO 0.4 g/dL (0.4-0.6)
[2024-08-23 16:43] LABS: ANA PATTERN 2 Nuclear, Speckled; ANA SCREEN, IFA POSITIVE (NEGATIVE); ANA TITER 2 1:40 titer (NEGATIVE)
== END ==
LOC: M PLALAB 08:29
PROVIDERS: ATTEND Psychiatry & Neurology Neurology
DX: R51.9 Headache, unspecified (principal); M54.2 Cervicalgia; M54.50 Low back pain, unspecified

== ENCOUNTER → 2024-12-26 | Outpatient (CLI) | payer BC, MEDICARE ==
[~2024-12-26] MED LIST changes: +D31000CA6 PO; -VITA-183 PO
[2024-12-26 15:45] LABS: PLATELET COUNT, AUTOMATED 233 10^3/uL (150-450)
[2024-12-26 16:06] LABS: C REACTIVE PROTEIN QUANTITATIV 0.8 MG/DL (<1.0)
[2024-12-26 16:11] LABS: ERYTHROCYTE SEDIMENTATION RATE 28 mm/hr (0-30)
[2024-12-26 16:14] LABS: ALT/SGPT 33.0 U/L (7.0-40); AST/SGOT 31.0 U/L (<34); CALCIUM LEVEL 10.0 MG/DL (8.3-10.6); CARBON DIOXIDE LEVEL 25.0 MMOL/L (20-31); CHLORIDE LEVEL 104.0 MMOL/L (98-107); CREATININE FOR GFR 0.8 MG/DL (0.55-1.30); GLOMERULAR FILTRATION RATE 81.7 (>45); POTASSIUM SERUM 4.0 MMOL/L (3.5-5.1); RHEUMATOID FACTOR QUANT 6.0 IU/ML (<14); SODIUM LEVEL 143.0 MMOL/L (136-145)
[2024-12-26 16:34] LABS: ATYPICAL LYMPH 6 % (0-5); BASOPHILS 2 % (0-1); EOSINOPHILS 1 % (0-3); LYMPHOCYTES 49 % (16-44); MONOCYTES 6 % (0-5); NEUTROPHILS 35 % (28-66); PLATELET ESTIMATE NORMAL (NORMAL)
== END ==
LOC: M PLALAB 13:12
PROVIDERS: ATTEND Psychiatry & Neurology Neurology
DX: M19.90 Unspecified osteoarthritis, unspecified site (principal); G43.909 Migraine, unspecified, not intractable, without status migrainosus